=== PATIENT | male | born 1940 | race Caucasian/White ===

== ENCOUNTER → 2018-06-25 09:20 | Outpatient (CLI) | payer MEDICARE, OTHER, SELFPAY ==
--- NOTE | 2018-06-25 | DI.MRI.S_ITS ---
PROCEDURE: MR HEAD/BRAIN WO CON INDICATIONS: VERTIGO/ABNORMAL GAIT TECHNIQUE: Non-contrast axial T1 spin echo, axial T2 fast spin echo, sagittal and axial FLAIR, coronal T2 fast spin echo, axial gradient echo, axial diffusion and ADC through the brain. COMPARISON: None. FINDINGS: Image quality: Excellent. CSF spaces: Ventricles appear symmetric in size and shape. Basal cisterns are patent. No extra-axial fluid collections. Brain: No intracranial bleeds or mass effects. There is cerebral volume loss for age. Prominent perivascular spaces are seen. There are periventricular and deep white matter chronic small vessel ischemic changes. Brainstem appears normal. Diffusion-weighted images show no acute ischemic insults. No chronic ischemic insults. Normal intravascular flow voids are present. Skull and face: Calvarial bone marrow is normal in signal. Orbits are normal. Sinuses: No significant paranasal sinus abnormality is seen. Prominent bilateral mastoid air cell fluid can be seen, right worse than left. IMPRESSION: No findings of acute or subacute infarction can be seen. Note is made of age-appropriate brain parenchymal volume loss and chronic small vessel ischemic changes. Note made of prominent bilateral mastoid air cell fluid. Please correlate with potential clinical findings of mastoiditis. Dictated by: Andrés Cunningham M.D. on 06/25/2018 at 10:15 Approved by: Andrés Cunningham M.D. on 06/25/2018 at 10:16
== END ==
PROVIDERS: Visit Provider Psychiatry & Neurology Neurology
DX: R42 Dizziness and giddiness (principal); R26.9 Unspecified abnormalities of gait and mobility
CPT/HCPCS: 70551

== ENCOUNTER → 2019-08-31 13:23 | Outpatient (CLI) | payer MEDICARE, OTHER, SELFPAY ==
--- NOTE | 2019-08-31 | DI.MRI.S_ITS ---
PROCEDURE: MR LUMBAR SPINE WO CON INDICATIONS: Radiculopathy, lumbosacral region TECHNIQUE: Noncontrast sagittal T1 spin echo and T2 fast echo, sagittal STIR, axial T1 and T2 fast spin echo through the lumbar spine. In cases with scoliosis, additional coronal T2 fast spin echo may be performed. COMPARISON: [facility], CR, XR LUMBAR SPINE 2 OR 3 VIEWS, 08/19/2019, 11:53. FINDINGS: Image quality: Excellent. Alignment and Curvature: There is normal bony alignment. Bone Marrow: Marrow is of normal overall signal. No acute vertebral body compression fractures. Mild chronic L1 compression. Spinal Cord: Conus medullaris terminates at the L2 level. Visualized cord demonstrates normal signal and size. Paraspinous Soft Tissues: No paravertebral masses. T12-L1: No canal stenosis or foraminal stenosis. L1-L2: Mild chronic disc height loss. Small left paracentral disc protrusion, without nerve root impingement. No canal stenosis or significant foraminal stenosis. Mild facet hypertrophy. L2-L3: Moderate to large diffuse disc bulge. Facet and ligament hypertrophy. Moderate canal stenosis. Bilateral foraminal disc bulges without significant foraminal nerve root impingement. L3-L4: Moderate diffuse disc bulge. Prominent facet and ligament hypertrophy. Moderate to severe canal stenosis. Mild bilateral foraminal stenosis. L4-L5: Disc bulge. Prominent bilateral facet and ligament hypertrophy. Severe canal stenosis. Mild bilateral foraminal stenosis. L5-S1: Diffuse disc bulge. Impressive bilateral facet and ligament hypertrophy. Moderate canal stenosis. Mild bilateral foraminal stenosis. IMPRESSION: 1. Multilevel canal stenosis is moderate at L2-L3, moderate to severe at L3-L4, severe at L4-L5, and moderate L5-S1. 2. Multilevel facet arthropathy. Dictated by: Dejan Paez M.D. on 08/31/2019 at 16:05 Approved by: Dejan Paez M.D. on 08/31/2019 at 16:11
== END ==
PROVIDERS: Family Provider Family Medicine; PCP Family Medicine; Visit Provider Orthopaedic Surgery
DX: M48.061 Spinal stenosis, lumbar region without neurogenic claudication (principal); M48.07 Spinal stenosis, lumbosacral region; M47.26 Other spondylosis with radiculopathy, lumbar region; M47.27 Other spondylosis with radiculopathy, lumbosacral region
CPT/HCPCS: 72148

== ENCOUNTER 2020-12-03 08:59 | Inpatient (IN) | payer MEDICARE, OTHER, SELFPAY ==
[2020-12-03] VITALS (31 sets, daily range): BP systolic 92–168; BP diastolic 55–89; PULSE 71–135; RESP 15–32; TEMP 36.6–36.9; O2SAT 86–99; BMI 24.3
--- NOTE | 2020-12-03 09:01 | ED.GENADULT ---
HPI - General Adult General Chief complaint: Abdominal Pain Stated complaint: RUQ Abd pain Time Seen by Provider: 12/03/20 09:00 History of Present Illness HPI narrative: 80-year-old gentleman with a history of prostate cancer, hypertension, depression and anxiety, reflux, history of alcohol use presents with 24 hours of right upper quadrant abdominal pain getting worse over the ensuing 24 hours and worse with deep breathing. Does not seem to be influenced by eating or not eating. He states his last bowel movement was approximately 48 hours ago. He describes no significant nausea or vomiting. No chest pain or palpitations. Denies fevers or cough. No dysuria or frequency. No headaches or neurologic complaints this time. Related Data Home Medications Medication Instructions Recorded Confirmed atorvastatin 20 mg PO BEDTIME 12/03/20 12/03/20 duloxetine 60 mg PO DAILY 12/03/20 12/03/20 latanoprost 1 drp EYE-BOTH BEDTIME 12/03/20 12/03/20 mirtazapine 7.5 mg PO BEDTIME 12/03/20 12/03/20 omeprazole 20 mg PO DAILY 12/03/20 12/03/20 sertraline 100 mg PO BID 12/03/20 12/03/20 trazodone 150 mg PO BEDTIME 12/03/20 12/03/20 Allergies Allergy/AdvReac Type Severity Reaction Status Date / Time No Known Drug Allergies Allergy Verified 12/03/20 09:23 Review of Systems Review of Systems ROS Unobtainable: All systems reviewed & are unremarkable except as noted in HPI and below Patient History Medical History Alcohol use Anxiety Chronic GERD Depression Hypertension Pulmonary embolism Surgical History H/O radical prostatectomy Social History household members: none Smoking Status: Never smoker alcohol intake: current Exam Narrative Exam Narrative: General: Healthy appearing, in mild distress. Well-nourished well-developed. History is somewhat disjointed however he has had 50 mcg of fentanyl HEENT: Moist mucous membranes, normal sclera with reactive pupils, Neck: No JVD, supple Respiratory: Lungs are clear to auscultation, no wheezing no rales no rhonchi. Full and symmetrical air movement Cardiac: Regular rate and rhythm no murmurs no bruits Abdomen: Soft, mild tenderness in the right upper quadrant without rebound or guarding, hypoactive bowel tones, no flank pain Skin: Warm and dry, no rashes Neurologic: Grossly neurologically intact with no obvious asymmetries or abnormalities Extremities: No trauma, well perfused Psych: Cooperative, appropriate insight and affect Initial Vital Signs Initial Vital Signs: Vital Signs Pulse Rate 99 H 12/03/20 09:07 Respiratory Rate 15 12/03/20 09:07 Pulse Oximetry 96 12/03/20 09:07 Course Orders Ordered: ED Orders 12/03/20 11:34 US abdomen limited Stat 12/03/20 12:31 CT abdomen pelvis w con Stat 12/03/20 13:07 CT angio chest PE protocol Stat 12/03/20 13:32 COVID19 Stat 12/03/20 13:38 BNP [NT-proBNP (BNP-Adult 18+)] Stat 12/03/20 13:39 EKG-12 Lead Stat Acetaminophen (Acetaminophen 325 Mg Tablet) 650 mg PO Q6HR PRN PRN Reason: Fever/Mild Pain (1-3) Apixaban (Apixaban 5 Mg Tablet) 10 mg PO BID MIESHA Atorvastatin Calcium (Atorvastatin 20 Mg Tablet) 20 mg PO BEDTIME MIESHA Duloxetine HCl (Duloxetine 30 Mg Capsule) 60 mg PO DAILY MIESHA Hydromorphone HCl (Hydromorphone 0.5 Mg Inj) 0.5 mg IV Q15MIN PRN PRN Reason: Pain, Last Admin: 12/03/20 15:30 Dose: 0.5 mg Documented by: Admin: 12/03/20 13:41 Dose: 0.5 mg Documented by: Admin: 12/03/20 12:02 Dose: 0.5 mg Documented by: Admin: 12/03/20 09:48 Dose: 0.5 mg Documented by: KAROLINE Sodium Chloride (Normal Saline 0.9%) 1,000 mls @ 150 mls/hr IV BOLUS ONE Stop: 12/03/20 19:56 Last Infusion: 12/03/20 16:28 Dose: 0 mls/hr Documented by: Admin: 12/03/20 13:41 Dose: 150 mls/hr Documented by: KAROLINE Ibuprofen (Ibuprofen 600 Mg Tablet) 600 mg PO Q6HR PRN PRN Reason: Fever/Mild Pain (1-3) Last Admin: 12/03/20 17:53 Dose: 600 mg Documented by: SADE Latanoprost (Latanoprost 0.005% Ophth 2.5 Ml) 1 drops EYE-BOTH BEDTIME MIESHA Mirtazapine (Mirtazapine 7.5 Mg Tablet) 7.5 mg PO BEDTIME MIESHA Naloxone HCl (Naloxone 0.4 Mg/Ml Vial) 0.2 mg IV Q2MIN PRN PRN Reason: Opiate Reversal Ondansetron HCl (Ondansetron 4 Mg/2 Ml Inj) 4 mg IV NOW PRN PRN Reason: nausea Last Admin: 12/03/20 09:48 Dose: 4 mg Documented by: KAROLINE Ondansetron HCl (Ondansetron 4 Mg/2 Ml Inj) 4 mg IV Q8HR PRN PRN Reason: Nausea And Vomiting Pantoprazole Sodium (Pantoprazole 20 Mg Tablet) 20 mg PO DAILY MIESHA Sennosides (Sennosides 8.6 Mg Tablet) 17.2 mg PO BEDTIME PRN PRN Reason: Constipation Sertraline HCl (Sertraline 50 Mg Tablet) 100 mg PO BID MIESHA Trazodone HCl (Trazodone 50 Mg Tablet) 150 mg PO BEDTIME MIESHA Discontinued Medications Apixaban (Apixaban 5 Mg Tablet) 5 mg PO NOW ONE Stop: 12/03/20 15:27 Last Admin: 12/03/20 16:23 Dose: 5 mg Documented by: KAROLINE Apixaban (Apixaban 5 Mg Tablet) 5 mg PO NOW ONE Stop: 12/03/20 17:14 Last Admin: 12/03/20 17:53 Dose: 5 mg Documented by: SADE Sodium Chloride (Normal Saline 0.9%) 1,000 mls @ 1,000 mls/hr IV BOLUS ONE Stop: 12/03/20 10:12 Last Infusion: 12/03/20 11:00 Dose: 0 mls/hr Documented by: Admin: 12/03/20 09:28 Dose: 1,000 mls/hr Documented by: KAROLINE Vital Signs Vital signs: Vital Signs - 8 hr 12/03/20 11:59 12/03/20 12:00 12/03/20 12:30 Pulse Rate 86 79 87 Respiratory Rate Blood Pressure 147/73 H 142/72 H Pulse Oximetry 93 94 92 12/03/20 12:58 12/03/20 13:00 12/03/20 13:01 Pulse Rate 86 80 79 Respiratory Rate Blood Pressure 92/55 L Pulse Oximetry 95 96 94 12/03/20 13:06 12/03/20 13:30 12/03/20 13:32 Pulse Rate 80 93 H 89 Respiratory Rate Blood Pressure 129/77 133/78 Pulse Oximetry 94 92 93 12/03/20 14:00 12/03/20 14:01 12/03/20 14:30 Pulse Rate 83 82 80 Respiratory Rate 17 21 20 Blood Pressure 143/70 H 132/72 Pulse Oximetry 91 92 91 12/03/20 15:00 12/03/20 15:16 12/03/20 15:21 Pulse Rate 81 110 H 100 H Respiratory Rate 20 32 H 32 H Blood Pressure 121/67 168/80 H Pulse Oximetry 89 L 88 L 86 L 12/03/20 15:22 12/03/20 15:30 Pulse Rate 83 Respiratory Rate 24 Blood Pressure 152/71 H Pulse Oximetry 96 99 Medical Decision Making Medical Records Medical records reviewed: Yes I reviewed the patient's medical records. Lab Data Lab results reviewed: Yes I reviewed the patient's lab results. Result diagrams: 12/03/20 09:14 12/03/20 09:14 Labs: Lab Results 12/03/20 12/03/20 12/03/20 Range/Units 09:14 09:14 09:14 WBC 8.8 (4.5-11.0) X10^3/uL RBC 4.68 (4.5-5.9) X10^6/uL Hgb 15.5 (13.5-17.5) g/dL Hct 45.0 (41-53) % MCV 96.0 (80-100) fL MCH 33.2 (26-34) PG MCHC 34.6 (30-36) % RDW 13.9 (11.6-14.8) % Plt Count 143 L (150-400) X10^3/uL Neut % (Auto) 79.1 H (50-75) % Lymph % (Auto) 9.4 L (25-40) % Andrew % (Auto) 10.7 (3-14) % Eos % (Auto) 0.5 L (2-4) % Baso % (Auto) 0.3 (0-2) % Neut # (Auto) 6900 (0420-2672) /uL Lymph # (Auto) 800 L (9044-7381) /uL Andrew # (Auto) 900 (0-900) /uL Eos # (Auto) 0 (0-450) /uL Baso # (Auto) 0 (0-100) /uL Sodium 135 L (137-145) mmol/L Potassium 3.9 (3.4-5.1) mmol/L Chloride 100 (98-107) mmol/L Carbon Dioxide 27 (22-32) mmol/L BUN 11 (9-20) mg/dL Creatinine 0.76 (0.66-1.25) mg/dL Estimated GFR > 60.0 (>60) mL/min BUN/Creatinine Ratio 14.5 (6-22) Glucose 121 H (80-110) mg/dL Lactate 0.9 (0.7-2.1) mmol/L Calcium 9.1 (8.4-10.2) mg/dL Magnesium 2.2 (1.6-2.3) mg/dL Total Bilirubin 1.6 H (0.2-1.3) mg/dL AST 25 (17-59) IU/L ALT 16 (<50) IU/L Alkaline Phosphatase 69 (38-126) U/L Troponin I < 0.012 (0.01-0.034) ng/mL NT-Pro-B Natriuret Pep (<450) pg/mL Total Protein 7.7 (6.3-8.2) g/dL Albumin 4.5 (3.5-5.0) g/dL Globulin 3.2 (1.7-4.1) g/dL Albumin/Globulin Ratio 1.4 (1.0-2.8) Lipase 20 L (23-300) U/L SARS-CoV-2 (PCR) (Negative) 12/03/20 12/03/20 Range/Units 13:32 13:38 WBC (4.5-11.0) X10^3/uL RBC (4.5-5.9) X10^6/uL Hgb (13.5-17.5) g/dL Hct (41-53) % MCV (80-100) fL MCH (26-34) PG MCHC (30-36) % RDW (11.6-14.8) % Plt Count (150-400) X10^3/uL Neut % (Auto) (50-75) % Lymph % (Auto) (25-40) % Andrew % (Auto) (3-14) % Eos % (Auto) (2-4) % Baso % (Auto) (0-2) % Neut # (Auto) (6135-7265) /uL Lymph # (Auto) (3623-6013) /uL Andrew # (Auto) (0-900) /uL Eos # (Auto) (0-450) /uL Baso # (Auto) (0-100) /uL Sodium (137-145) mmol/L Potassium (3.4-5.1) mmol/L Chloride (98-107) mmol/L Carbon Dioxide (22-32) mmol/L BUN (9-20) mg/dL Creatinine (0.66-1.25) mg/dL Estimated GFR (>60) mL/min BUN/Creatinine Ratio (6-22) Glucose (80-110) mg/dL Lactate (0.7-2.1) mmol/L Calcium (8.4-10.2) mg/dL Magnesium (1.6-2.3) mg/dL Total Bilirubin (0.2-1.3) mg/dL AST (17-59) IU/L ALT (<50) IU/L Alkaline Phosphatase (38-126) U/L Troponin I (0.01-0.034) ng/mL NT-Pro-B Natriuret Pep 150 (<450) pg/mL Total Protein (6.3-8.2) g/dL Albumin (3.5-5.0) g/dL Globulin (1.7-4.1) g/dL Albumin/Globulin Ratio (1.0-2.8) Lipase (23-300) U/L SARS-CoV-2 (PCR) Negative (Negative) Urine Dip Bedside Urine Glucose Negative Bedside Urine Bilirubin - Negative Bedside Urine Ketone - Negative Urine Specific [place] 1.025 Bedside Urine Occult Blood - Negative Bedside Urine pH 6.0 Bedside Urine Protein + 30 Bedside Urine Urobilinogen +/- 1mg Bedside Urine Nitrite - Negative Bedside Urine Leukocytes - Negative Esterase Point of care testing: Urine Dip Bedside Urine Glucose Negative Bedside Urine Bilirubin - Negative Bedside Urine Ketone - Negative Urine Specific [place] 1.025 Bedside Urine Occult Blood - Negative Bedside Urine pH 6.0 Bedside Urine Protein + 30 Bedside Urine Urobilinogen +/- 1mg Bedside Urine Nitrite - Negative Bedside Urine Leukocytes - Negative Esterase Imaging Data Chest x-ray: Radiologist's Impression: FINDINGS: Surgical changes and devices: None. Lungs and pleura: An incomplete inspiratory result is noted, causing a crowded appearance to the lung markings. No pneumothorax or significant pleural effusions are seen. Mild, streaky opacities are seen at the lung bases. Mediastinum: Mediastinal contours appear normal. Heart size is normal. Bones and chest wall: No suspicious bony lesions. Age-appropriate bony degenerative changes are seen. Overlying soft tissues appear unremarkable. IMPRESSION: Presumed atelectasis is seen at the lung bases. Differential diagnosis includes minimal/early infiltrate, yet this is considered to be less likely. Dictated by: Andrés Cunningham M.D. on 12/03/2020 at 8:27 CT scan - chest: Radiologist's Impression: FINDINGS: Image quality: Excellent. Pulmonary arteries: Pulmonary arteries demonstrate a subsegmental pulmonary embolus in the right lower lobe which is unchanged or slightly improved compared to the prior study earlier today. No other pulmonary emboli are identified. Lungs and pleura: There is bibasilar atelectasis. No pleural effusions or pneumothorax. Central and peripheral airways are patent. Mediastinum: Heart size is normal, without pericardial effusion. No mediastinal or hilar adenopathy. Thoracic aorta is normal in caliber and enhancement. Esophagus is normal in caliber, without hiatal hernia. The coronary arteries have atherosclerotic calcifications. Bones and chest wall: No suspicious bony lesions. Ribs and thoracic spine appear intact throughout. Thyroid gland is normal. No axillary or supraclavicular adenopathy. Abdomen: Visualized upper abdominal solid organs appear normal in the early arterial phase of enhancement. IMPRESSION: 1. Right lower lobe pulmonary embolism, also seen on prior CT of the abdomen and pelvis earlier today. No additional pulmonary emboli identified. 2. Right lower lobe infiltrate consistent with atelectasis or possibly a component of pulmonary infarction. Dictated by: Douglas Jarvis M.D. on 12/03/2020 at 13:40 ECG Data Attestation: I personally reviewed and interpreted this ECG as follows: Interpretation: Sinus rhythm at a rate of 77 Leftward axis, normal intervals Nonspecific ST T wave changes without signs of acute ischemia MDM Narrative Medical decision making narrative: 80-year-old gentleman who presents with right upper quadrant pain an after fairly thorough workup turns out he has a right-sided pulmonary emboli with probable lower lobe right pulmonary infarct causing the right upper abdominal pain. There does not appear to be any acute infection or cardiac etiology. He states that he has had pulmonary embolisms in the past and was anticoagulated for a period of time. Presumably with the repeat pulmonary embolism he is going to need to consider anticoagulation for the rest of his life. Care is reviewed with Dr. Menendez, hospitalist. Patient will be admitted to the hospitalist service. Will begin Eliquis 5 mg b.i.d.. Discharge Plan Departure Patient Disposition: Admitted As Inpatient Clinical Impression: Embolism, pulmonary with infarction Admit Date/Time: 12/03/20 15:30 Admit Provider: Tucker Menendez
--- NOTE | 2020-12-03 09:15 | DI.RAD.S_ITS ---
PROCEDURE: XR CHEST 1V INDICATIONS: upper abd/chest pain TECHNIQUE: One view of the chest was acquired. COMPARISON: None. FINDINGS: Surgical changes and devices: None. Lungs and pleura: An incomplete inspiratory result is noted, causing a crowded appearance to the lung markings. No pneumothorax or significant pleural effusions are seen. Mild, streaky opacities are seen at the lung bases. Mediastinum: Mediastinal contours appear normal. Heart size is normal. Bones and chest wall: No suspicious bony lesions. Age-appropriate bony degenerative changes are seen. Overlying soft tissues appear unremarkable. IMPRESSION: Presumed atelectasis is seen at the lung bases. Differential diagnosis includes minimal/early infiltrate, yet this is considered to be less likely. Dictated by: Andrés Cunningham M.D. on 12/03/2020 at 8:27 Approved by: Andrés Cunningham M.D. on 12/03/2020 at 8:35
[2020-12-03 09:20] LABS: Add Manual Diff / Slide Review NO; Basophils Absolute Auto 0 /uL (0-100); Basophils Percent Auto 0.3 % (0-2); Eosinophils Absolute Auto 0 /uL (0-450); Eosinophils Percent Auto 0.5 % (2-4); Hemoglobin 15.5 g/dL (13.5-17.5); Lymphocytes Absolute Auto 800 /uL (1100-4500); Lymphocytes Percent Auto 9.4 % (25-40); Mean Corpuscular HGB Conc 34.6 % (30-36); Mean Corpuscular Hemoglobin 33.2 PG (26-34); Monocytes Absolute Auto 900 /uL (0-900); Monocytes Percent Auto 10.7 % (3-14); Neutrophils Absolute Auto 6900 /uL (1500-7000); Neutrophils Percent Auto 79.1 % (50-75); Platelet Count 143 X10^3/uL (150-400); Red Blood Cell Count 4.68 X10^6/uL (4.5-5.9); Red Cell Distribution Width 13.9 % (11.6-14.8); White Blood Cell Count 8.8 X10^3/uL (4.5-11.0)
[2020-12-03] MEDS: SODIUM CHLORIDE 0.9% 1,000 ML 1000 ML IV (09:28)
[2020-12-03 09:32] LABS: Alanine Aminotransferase 16 IU/L (<50); Albumin 4.5 g/dL (3.5-5.0); Albumin Globulin Ratio 1.4 (1.0-2.8); Alkaline Phosphatase 69 U/L (38-126); Aspartate Aminotransferase 25 IU/L (17-59); BUN Creatinine Ratio 14.5 (6-22); Bilirubin Total 1.6 mg/dL (0.2-1.3); Blood Urea Nitrogen 11 mg/dL (9-20); Calcium 9.1 mg/dL (8.4-10.2); Carbon Dioxide 27 mmol/L (22-32); Chloride 100 mmol/L (98-107); Estimated Glomerular Filt Rate > 60.0 mL/min (>60); Globulin 3.2 g/dL (1.7-4.1); Glucose 121 mg/dL (80-110); HEMOLYSIS 50 (0-50); Lipase 20 U/L (23-300); Magnesium 2.2 mg/dL (1.6-2.3); Potassium 3.9 mmol/L (3.4-5.1); Sodium 135 mmol/L (137-145); Total Protein 7.7 g/dL (6.3-8.2)
[2020-12-03 09:33] LABS: Lactate (Lactic Acid) 0.9 mmol/L (0.7-2.1)
[2020-12-03 09:43] LABS: Troponin I < 0.012 ng/mL (0.01-0.034)
[2020-12-03] MEDS: ONDANSETRON 4 MG/2 ML INJ IV (09:48)
[2020-12-03] MEDS: HYDROMORPHONE 0.5 MG INJ IV ×4 (09:48→15:30)
--- NOTE | 2020-12-03 11:34 | DI.US.S_ITS ---
PROCEDURE: US ABDOMEN LIMITED INDICATIONS: RUQ PAIN TECHNIQUE: Real-time focused scanning was performed of the abdomen, with image documentation. COMPARISON: None. FINDINGS: Quality of visualization is limited by patient motion and overlying bowel gas. Grossly normal liver appearance, gallbladder appears normal as do the bile ducts. Pancreas could not be seen due to bowel gas. IMPRESSION: Significantly limited study, predominantly due to overlying bowel gas. Depending on the clinical status follow-up by CT scanning may become necessary. Dictated by: Erasmo Gauthier M.D. on 12/03/2020 at 12:45 Approved by: Erasmo Gauthier M.D. on 12/03/2020 at 12:46
--- NOTE | 2020-12-03 12:31 | DI.CT.S_ITS ---
PROCEDURE: CT ABDOMEN PELVIS W CON INDICATIONS: RUQ pain TECHNIQUE: After the administration of intravenous contrast, 5 mm thick sections acquired from the diaphragm to the symphysis. 5 mm coronal and sagittal reformats were acquired. For radiation dose reduction, the following was used: automated exposure control, adjustment of mA and/or kV according to patient size. COMPARISON: None. FINDINGS: Image quality: Excellent. ABDOMEN: Lung bases: Lung bases are abnormal with what appears to be a right lower lobe mild pneumonia posteriorly, medially. In the pulmonary arteries leading to this area are 2 main branches containing a moderate radiodensity filling defect, tubular, consistent with pulmonary embolus. Thus, pulmonary ischemic injury as cause of the alveolar infiltration pattern in that area should be also considered. There is also mild linear atelectasis at the left lung base. Within the abdomen mild fatty infiltration throughout the liver is present. There is a 2.5 cm presumed cyst at the upper right posterior hepatic margin beneath the diaphragm, without inflammation. This cyst measures higher than water in radiodensity, approximately 22 Hounsfield units, and therefore could be further assessed with limited single organ ultrasound to confirm liquid as internal content, likely proteinaceous by appearance. Prior herniorrhaphy noted on the left. No body wall herniation is seen.. Heart size is normal. Solid organs: Liver is normal in size and enhancement. Gallbladder appears normal. Biliary system is non dilated. Pancreas enhances normally. Spleen is normal in size and enhancement. No adrenal nodules. Kidneys demonstrate normal size and enhancement, without hydronephrosis. Peritoneum and bowel: Bowel loops demonstrate normal wall thickness and caliber. Note: No free fluid or air. Nodes and vessels: No retroperitoneal or mesenteric adenopathy by size criteria. Aorta and inferior vena cava are normal in size. Miscellaneous: No ventral hernias. PELVIS: Genitourinary: Bladder wall thickness is normal. Miscellaneous: No inguinal hernias or adenopathy. Bones: No suspicious bony lesions. No vertebral body compression fractures. IMPRESSION: Right lower lobe mild or early pneumonia, no subdiaphragmatic inflammation seen. Additionally, note is made of posterior right lung base pulmonary embolus, acute in appearance, and therefore the area of inflammation at the posterior medial right lower lobe could represent ischemic injury rather than pneumonia/infection at this time. Fatty infiltration throughout the liver, mild in severity. Postsurgical changes of prior left inguinal canal region herniorrhaphy, no body wall herniation found. Note: Findings called to the emergency room physician caring for the patient regarding the pulmonary embolus in the higher than water density 2.5 cm presumed cyst right superior hepatic lobe. Sonographic elective follow-up targeted to that presume cyst is warranted to confirm benign etiology. Follow-up CT for further assessment through the chest given the findings above is anticipated. Dictated by: Erasmo Gauthier M.D. on 12/03/2020 at 13:02 Approved by: Erasmo Gauthier M.D. on 12/03/2020 at 13:12
--- NOTE | 2020-12-03 13:07 | DI.CT.S_ITS ---
PROCEDURE: CT ANGIO CHEST PE PROTOCOL INDICATIONS: PE seen on Abd CT TECHNIQUE: After the administration of intravenous contrast, 2 mm thick sections acquired from the pulmonary apices to the posterior costophrenic angles. 3-dimensional maximum intensity projection (MIP) coronal and sagittal reformats were then acquired through the thorax. For radiation dose reduction, the following was used: automated exposure control, adjustment of mA and/or kV according to patient size. COMPARISON: [facility], CT, CT ABDOMEN PELVIS W CON, 12/03/2020, 12:47. FINDINGS: Image quality: Excellent. Pulmonary arteries: Pulmonary arteries demonstrate a subsegmental pulmonary embolus in the right lower lobe which is unchanged or slightly improved compared to the prior study earlier today. No other pulmonary emboli are identified. Lungs and pleura: There is bibasilar atelectasis. No pleural effusions or pneumothorax. Central and peripheral airways are patent. Mediastinum: Heart size is normal, without pericardial effusion. No mediastinal or hilar adenopathy. Thoracic aorta is normal in caliber and enhancement. Esophagus is normal in caliber, without hiatal hernia. The coronary arteries have atherosclerotic calcifications. Bones and chest wall: No suspicious bony lesions. Ribs and thoracic spine appear intact throughout. Thyroid gland is normal. No axillary or supraclavicular adenopathy. Abdomen: Visualized upper abdominal solid organs appear normal in the early arterial phase of enhancement. IMPRESSION: 1. Right lower lobe pulmonary embolism, also seen on prior CT of the abdomen and pelvis earlier today. No additional pulmonary emboli identified. 2. Right lower lobe infiltrate consistent with atelectasis or possibly a component of pulmonary infarction. Dictated by: Douglas Jarvis M.D. on 12/03/2020 at 13:40 Approved by: Douglas Jarvis M.D. on 12/03/2020 at 13:55
[2020-12-03] MEDS: SODIUM CHLORIDE 0.9% 1,000 ML 150 ML IV (13:41)
[2020-12-03 13:54] LABS: COVID19 -Nasal RAPID Negative (Negative)
[2020-12-03 14:38] LABS: NT-proBNP (BNP-Adult 18+) 150 pg/mL (<450)
--- NOTE | 2020-12-03 15:29 | PC.NURSE ---
Pt stood to void, room air sat dropped into mid to low 80s. placed on 6LNC w/o improvement. Placed on 100% NRB, provider to room, sat improved, weaned to NC 4L. c/o increased pain.
--- NOTE | 2020-12-03 15:34 | P.HP_ITS ---
History of Present Illness History of Present Illness Date Patient Seen: 12/03/20 Chief complaint: RUQ Abd pain Narrative: This is a 80-year-old male with past medical history prostate cancer, depression, anxiety, GERD who presents to the hospital with 24 hours of right upper quadrant abdominal pain and is found to have pulmonary embolism. The patient reports being in his usual state of health until yesterday morning when he began to experience severe right upper quadrant pain. He reports associated dyspnea. He states that his pain was exacerbated by deep breath. He denies any change in his pain with eating or drinking. He denies any nausea or vomiting. He denies significant chest pain. As his pain was not improving he presented to the emergency department where he underwent CTA which showed evidence of right lower lobe pulmonary embolism with associated infiltrate consistent with atelectasis versus pulmonary infarction. The patient was notably down to 86% on room air and was placed on the 12/13 L of supplemental oxygen with improvement in saturations to the mid 90s. He was started on Eliquis in the emergency department and is now admitted to the medicine service for further management. Patient History Medical History Alcohol use Anxiety Chronic GERD Depression Hypertension Pulmonary embolism Surgical History H/O radical prostatectomy Family & Social History Safety & Behavioral: Feels Safe in Current Yes Environment Been Physically Hurt or No Threatened By a Person Tobacco & Substance use: Smoking Status Never smoker Substance Use Type does not use Meds Home Medications and Allergies Home Medications Medication Instructions Recorded Confirmed Type atorvastatin 20 mg PO BEDTIME 12/03/20 12/03/20 History duloxetine 60 mg PO DAILY 12/03/20 12/03/20 History latanoprost 1 drp EYE-BOTH BEDTIME 12/03/20 12/03/20 History mirtazapine 7.5 mg PO BEDTIME 12/03/20 12/03/20 History omeprazole 20 mg PO DAILY 12/03/20 12/03/20 History sertraline 100 mg PO BID 12/03/20 12/03/20 History trazodone 150 mg PO BEDTIME 12/03/20 12/03/20 History Allergies Allergy/AdvReac Type Severity Reaction Status Date / Time No Known Drug Allergies Allergy Verified 02/22/21 09:23 Review of Systems Review of Systems ROS: Yes All systems reviewed with the patient and are negative except as otherwise documented Constitutional Constitutional: Denies body ache(s), Denies chills, Denies fatigue, Denies fever(s), Denies headache(s), Denies night sweats, Denies weakness and Denies weight gain Eyes Eyes: Denies diplopia ENT Ears, Nose, Mouth, and Throat: No abnormal hearing, No dysphagia, No dizziness and No headache(s) Cardiovascular Cardiovascular: Denies chest pain and Reports dyspnea Respiratory Respiratory: Reports dyspnea Gastrointestinal Gastrointestinal: Reports abdominal pain, Denies change in bowel habits and Den ies dysphagia Genitourinary Genitourinary: Denies dysuria Musculoskeletal Musculoskeletal: Denies abnormal gait and Denies arthralgias Neurologic Neurologic: Denies abnormal hearing, Denies abnormal gait, Denies dizziness, Denies headache(s) and Denies weakness Endocrine Endocrine: Denies fatigue Exam Vital Signs (past 8 hours): - 12/03/20 09:07 12/03/20 09:15 12/03/20 09:30 Temperature 97.9 F 98.4 F Pulse Rate 99 H 135 H 82 Respiratory Rate 15 22 Blood Pressure 151/72 H 125/86 Pulse Oximetry 96 96 95 12/03/20 10:00 12/03/20 10:30 12/03/20 11:00 Temperature Pulse Rate 79 73 73 Respiratory Rate Blood Pressure Pulse Oximetry 94 94 94 12/03/20 11:30 12/03/20 11:59 12/03/20 12:00 Temperature Pulse Rate 71 86 79 Respiratory Rate Blood Pressure 147/73 H 142/72 H Pulse Oximetry 93 93 94 12/03/20 12:30 12/03/20 12:58 12/03/20 13:00 Temperature Pulse Rate 87 86 80 Respiratory Rate Blood Pressure 92/55 L Pulse Oximetry 92 95 96 12/03/20 13:01 12/03/20 13:06 12/03/20 13:30 Temperature Pulse Rate 79 80 93 H Respiratory Rate Blood Pressure 129/77 Pulse Oximetry 94 94 92 12/03/20 13:32 12/03/20 14:00 12/03/20 14:01 Temperature Pulse Rate 89 83 82 Respiratory Rate 17 21 Blood Pressure 133/78 143/70 H Pulse Oximetry 93 91 92 12/03/20 14:30 12/03/20 15:00 12/03/20 15:16 Temperature Pulse Rate 80 81 110 H Respiratory Rate 20 20 32 H Blood Pressure 132/72 121/67 Pulse Oximetry 91 89 L 88 L 12/03/20 15:21 12/03/20 15:22 Temperature Pulse Rate 100 H Respiratory Rate 32 H 24 Blood Pressure 168/80 H Pulse Oximetry 86 L 96 Oxygen Delivery Method Nasal Cannula Oxygen Flow Rate [address] scan - chest: Radiologist's impression: IMPRESSION: 1. Right lower lobe pulmonary embolism, also seen on prior CT of the abdomen and pelvis earlier today. No additional pulmonary emboli identified. 2. Right lower lobe infiltrate consistent with atelectasis or possibly a component of pulmonary infarction. Dictated by: Douglas Jarvis M.D. on 12/03/2020 at 13:40 Approved by: Douglas Jarvis M.D. on 12/03/2020 at 13:55 Labs Result Diagrams: 12/03/20 09:14 12/03/20 09:14 Labs: Laboratory Results - last 24 hr 12/03/20 12/03/20 12/03/20 09:14 09:14 09:14 WBC 8.8 RBC 4.68 Hgb 15.5 Hct 45.0 MCV 96.0 MCH 33.2 MCHC 34.6 RDW 13.9 Plt Count 143 L Neut % (Auto) 79.1 H Lymph % (Auto) 9.4 L Crane % (Auto) 10.7 Eos % (Auto) 0.5 L Baso % (Auto) 0.3 Neut # (Auto) 6900 Lymph # (Auto) 800 L Crane # (Auto) 900 Eos # (Auto) 0 Baso # (Auto) 0 Sodium 135 L Potassium 3.9 Chloride 100 Carbon Dioxide 27 BUN 11 Creatinine 0.76 Estimated GFR > 60.0 BUN/Creatinine Ratio 14.5 Glucose 121 H Lactate 0.9 Calcium 9.1 Magnesium 2.2 Total Bilirubin 1.6 H AST 25 ALT 16 Alkaline Phosphatase 69 Troponin I < 0.012 NT-Pro-B Natriuret Pep Total Protein 7.7 Albumin 4.5 Globulin 3.2 Albumin/Globulin Ratio 1.4 Lipase 20 L SARS-CoV-2 (PCR) 12/03/20 12/03/20 13:32 13:38 WBC RBC Hgb Hct MCV MCH MCHC RDW Plt Count Neut % (Auto) Lymph % (Auto) Crane % (Auto) Eos % (Auto) Baso % (Auto) Neut # (Auto) Lymph # (Auto) Crane # (Auto) Eos # (Auto) Baso # (Auto) Sodium Potassium Chloride Carbon Dioxide BUN Creatinine Estimated GFR BUN/Creatinine Ratio Glucose Lactate Calcium Magnesium Total Bilirubin AST ALT Alkaline Phosphatase Troponin I NT-Pro-B Natriuret Pep 150 Total Protein Albumin Globulin Albumin/Globulin Ratio Lipase SARS-CoV-2 (PCR) Negative Assessment & Plan Assessment & Plan narrative: This is a 80-year-old male with past medical history prostate cancer, depression, anxiety, GERD who presents to the hospital with 24 hours of right upper quadrant abdominal pain and is found to have pulmonary embolism. 1. Pulmonary embolism Patient presented with 1 day of right upper quadrant abdominal pain and is found to have right lower lobe PE on CTA. There is also some evidence of atelectasis versus pulmonary infarction. He was started on Eliquis for anticoagulation. Will get echo, bilateral venous ultrasounds, monitor on telemetry. 2. Acute hypoxic respiratory failure He was found to be hypoxic down 86% on room air while in the emergency department. Placed on supplemental oxygen which she can continue with goal saturation of 94% or higher. 3. GERD Continue home PPI 4. Depression Continue home medications 5. Hyperlipidemia Continue home statin Code status: Limited: DNR, Ok to intubate DVT prophylaxis: Eliquis
--- NOTE | 2020-12-03 16:19 | PC.NURSE ---
Medication list reconciled from pharmacy list ([facility]). Pt does not know his meds. Noted multiple anti depressants.
[2020-12-03] MEDS: APIXABAN 5 MG TABLET PO ×2 (16:23→17:53)
--- NOTE | 2020-12-03 17:29 | DI.US.S_ITS ---
PROCEDURE: US PERIPH VENOUS LOW EXTREM BI INDICATIONS: Pulmonary embolism TECHNIQUE: Real-time imaging, as well as color and pulse Doppler interrogation, were performed of the deep veins of both legs from the inguinal ligament to the popliteal fossa. COMPARISON: None. FINDINGS: Right: The common femoral, femoral and popliteal veins are normally compressible, and free of intraluminal thrombus. Color and pulse Doppler demonstrate normal phasic intravascular flow. There is normal augmentation response to distal compression maneuver. Left: The common femoral, femoral and popliteal veins are normally compressible, and free of intraluminal thrombus. Color and pulse Doppler demonstrate normal phasic intravascular flow. There is normal augmentation response to distal compression maneuver. IMPRESSION: No deep venous thrombosis. Dictated by: Kathy Richmond M.D. on 12/03/2020 at 18:01 Approved by: Kathy Richmond M.D. on 12/03/2020 at 18:02
--- NOTE | 2020-12-03 17:32 | DI.ECHO.S_ITS ---
[place] +---------+ Hospital +---------+ : : [address] : : : : [id number] : : : : Phone: [phone] Echocardiogram Report + + :Name: MOSES ORTEGA Study Date: 12/04/2020 Height: 70 in : :[facility] ReadingLocation: Weight: 170 lb : : Gender: Male BSA: 1.9 m2 : :: 1940 Age: 80 yrs BP: 132/75 mmHg: :Reason For Study: PULMONARY EMBOLISM : :Ordering Physician: Rita : :Hospitalist Performed By: Carol Reis : :Referring: HECTOR LOWEO : + + Interpretation Summary The left ventricular cavity is small and might be underfilled. Left ventricular systolic function appears normal without focal wall motion abnormalities. The ejection fraction is estimated to be 60-65%. Diastolic parameters suggest a relaxation abnormality of the left ventricle, consistent with probable normal filling pressures. The right ventricle is normal in size and function. Pulmonary artery pressures cannot be estimated because of the lack of a measurable TR jet velocity but the IVC suggests a CVP of around 3 mmHg. Both atria are normal in size. There is no significant valvular heart disease. The ascending aorta is mildly enlarged. Procedure: A two-dimensional transthoracic echocardiogram with color flow and Doppler was performed. The study quality was technically adequate. There is no prior echocardiogram noted for this patient. The patient was in sinus rhythm with heart rates between 59-71 bpm during the exam. Left Ventricle: The left ventricular cavity is small. There is normal left ventricular wall thickness. Left ventricular systolic function appears normal without focal wall motion abnormalities. The ejection fraction is estimated to be 60-65%. Diastolic parameters suggest a relaxation abnormality of the left ventricle, consistent with probable normal filling pressures. Right Ventricle: The right ventricle is normal in size and function. Atria: Both atria are normal in size. There is no Doppler evidence for an interatrial shunt. Mitral Valve: The mitral valve leaflets are slightly calcified. There is trace mitral regurgitation. Aortic Valve: The aortic valve is trileaflet. The aortic valve opens well. There is no aortic valve stenosis. No aortic regurgitation is present. Tricuspid Valve: The tricuspid valve is normal in structure and function. There is trace tricuspid regurgitation. Pulmonary artery pressures cannot be estimated because of the lack of a measurable TR jet velocity but the IVC suggests a CVP of around 3 mmHg. Pulmonic Valve: The pulmonic valve leaflets are thin and pliable; valve motion is normal. There is no pulmonic valvular regurgitation. There is no significant valvular heart disease. Great Vessels: The aortic root is normal size. The ascending aorta is mildly enlarged. The IVC is of normal diameter and collapses greater than 50% with a sniff. This suggests a low right atrial pressure of 3 mm Hg. Pericardium/ Pleura There is no pericardial effusion. There is no pleural effusion. MMode/2D Measurements & Calculations LVIDd: 3.4 cm LVOT diam: 2.2 cm LVIDs: 2.3 cm Ao root diam: 3.4 cm FS: 33.7 % asc Aorta Diam: 3.5 cm EPSS: 0.67 cm Ao Arch Diam (Prox Trans): 3.1 cm IVSd: 0.53 cm LVPWd: 0.65 cm LV navarro. diameter/BSA (cm/m^2): 1.8 LV sys. diameter/BSA (cm/m^2): 1.2 LA A2 area: 18.9 cm2 RA long axis: 4.8 cm LA A4 area: 15.6 cm2 RA area: 12.8 cm2 LA length (vol): 5.3 cm RA vol: 28.6 ml LA vol: 47.1 ml RA : 14.7 ml/m2 LA vol index: 24.2 ml/m2 IVC diam: 1.6 cm RVD1 (basal): 3.2 cm TAPSE: 2.1 cm Doppler Measurements & Calculations Ao V2 max: 109.2 cm/sec LVOT Max Abebe: 94.5 cm/sec Ao V2 mean: 69.3 cm/sec LV V1 max P.6 mmHg Ao max P.8 mmHg LV V1 VTI: 20.8 cm Ao mean P.3 mmHg CARLIE(I,D): 3.4 cm2 Ao V2 VTI: 23.2 cm CARLIE(V,D): 3.3 cm2 sev ratio: 0.89 CARLIE indexed to BSA (cm^2/m^2): 1.8 MV E max abebe: 69.7 cm/sec PA V2 max: 65.8 cm/sec MV A max abebe: 84.2 cm/sec PA V2 mean: 45.2 cm/sec MV E/A: 0.83 PA mean P.92 mmHg Med Peak E' Abebe: 6.6 cm/sec PA pr(Accel): 15.6 mmHg E/E' med: 10.5 Lat Peak E' Abebe: 8.3 cm/sec E/E' lat: 8.4 E/e' average: 9.5 MV dec time: 0.25 sec SV(LVOT): 80.0 ml Reading Physician:09:10 AM
[2020-12-03] MEDS: IBUPROFEN 600 MG TABLET PO (17:53)
[2020-12-03] MEDS: ACETAMINOPHEN 325 MG TABLET 650 MG PO (19:54)
[2020-12-03] MEDS: ATORVASTATIN 20 MG TABLET PO (21:33)
[2020-12-03] MEDS: MELATONIN 3 MG TABLET 6 MG PO (21:34)
[2020-12-03] MEDS: MIRTAZAPINE 7.5 MG TABLET PO (21:35)
[2020-12-03] MEDS: TRAZODONE 50 MG TABLET 150 MG PO (21:39)
[2020-12-03] MEDS: OXYCODONE IR 5 MG TABLET PO (21:58)
[2020-12-03] MEDS: LATANOPROST 0.005% OPHTH 2.5 ML 1 DROPS EYE-BOTH (22:11)
--- NOTE | 2020-12-03 23:21 | PC.NURSE ---
Dypsnea with exertion, desats into upper 80's on 3-4L NC with sitting up at bedside; at rest, O2 3L=95%; moderate pain 5/10 to RUQ; PO oxycodone at bedtime, reassessed with 3/10 pain; pt denies pain to lower legs; Tele SR; pt using urinal at bedside; field spec ordered due to patient's reported weight loss and increased stress, including loss of appetite; protein drink provided with dinner.
[2020-12-04] VITALS (9 sets, daily range): BP systolic 97–132; BP diastolic 53–75; PULSE 63–98; RESP 16–18; TEMP 36.2–36.9; O2SAT 94–100
--- NOTE | 2020-12-04 01:30 | PC.NURSE ---
patient seen at start of shift and assessed. Oriented to self, birthdate, month, place and situation but did not know date. Speech sounds slurred but understandable. Breath sounds diminished with inspiratory crackles in right LL. On oxygen at 3.5L/min with sat of 97%. Does state he gets SOB with exertion and has pain in right upper abdomen with deep breathing so respirations are shallow. HRR w/telemetry reading of SR. BP checked by [employer] was 7/58 and now rechecked and is 132/75. Denied nausea. BT present and is passing flatus. Denies dysuria, frequency or urgency with urination; no UOP recorded on previous shift but evening RN verbally reported patient had urinated several times since admission. Is able to turn himself in bed. Generalized weakness and reports frequent falls prior to hospitalization so will be provided assistance when getting out of bed; gait not assessed at this time. Refusing SCD's so reminded to ankle wave; verbalizes understanding. At time of assessment stated pain was tolerable at 3/10 and now states he is no longer having pain. Fall risk score is high and bed alarm is activated.
[2020-12-04 06:25] LABS: Add Manual Diff / Slide Review NO; Basophils Absolute Auto 0 /uL (0-100); Basophils Percent Auto 0.3 % (0-2); Eosinophils Absolute Auto 100 /uL (0-450); Eosinophils Percent Auto 2.5 % (2-4); Hemoglobin 13.4 g/dL (13.5-17.5); Lymphocytes Absolute Auto 700 /uL (1100-4500); Lymphocytes Percent Auto 14.3 % (25-40); Mean Corpuscular HGB Conc 34.5 % (30-36); Mean Corpuscular Hemoglobin 33.5 PG (26-34); Mean Corpuscular Volume 97.2 fL (80-100); Monocytes Absolute Auto 500 /uL (0-900); Monocytes Percent Auto 9.9 % (3-14); Neutrophils Absolute Auto 3600 /uL (1500-7000); Platelet Count 113 X10^3/uL (150-400); Red Blood Cell Count 4.01 X10^6/uL (4.5-5.9); Red Cell Distribution Width 14.1 % (11.6-14.8)
[2020-12-04 06:35] LABS: BUN Creatinine Ratio 12.5 (6-22); Blood Urea Nitrogen 12 mg/dL (9-20); Calcium 8.7 mg/dL (8.4-10.2); Carbon Dioxide 30 mmol/L (22-32); Chloride 101 mmol/L (98-107); Estimated Glomerular Filt Rate > 60.0 mL/min (>60); Glucose 106 mg/dL (80-110); HEMOLYSIS < 15 (0-50); Potassium 3.8 mmol/L (3.4-5.1); Sodium 136 mmol/L (137-145)
[2020-12-04] MEDS: PANTOPRAZOLE 20 MG TABLET PO (08:37)
[2020-12-04] MEDS: DULOXETINE 30 MG CAPSULE 60 MG PO (08:37)
[2020-12-04] MEDS: SODIUM CHLORIDE 0.9% FLUSH 10 ML IV (08:37)
[2020-12-04] MEDS: APIXABAN 5 MG TABLET 10 MG PO (08:37)
--- NOTE | 2020-12-04 09:06 | CM.DANOTE ---
Addendum entered by Annemarie Gates R.N. 12/04/20 14:41: Kori, physical therapist indicated that patient is most likely discharging home today, and can benefit with home health P.T, as well as nursing, O.T. Had Dr. Menendez sign face to face, and he did indicate that the plan is for discharge today. Spoke to patient, and gave him agencies of home health, with the exception of [place], since they do not serve [facility]. Patient has no preference, and thinks that home health is a good idea. On calendar, [facility] is listed. Contacted Sheila at [facility] and let her know about referral. Patient will need nursing, P.T, O.T. Faxed her face sheet, face to face, orders, H&P. Let her know that DC summary will be faxed over when completed. Asked Marilyn, criminal legal assistant, to look for DC Summary and fax [facility] when completed. Patient confirmed that his friend, John Mackay, can pick him up, but not until later. He has no family in the area. Original Note: DCP; Case received, EMR reviewed and met with patient. Introduced self and role. Was able to obtain information from patient regarding his baseline activity level prior to hospitalization. DCP assessment completed with information currently available. Patient is a 80 year old male who admitted yesterday afternoon to the care of the hospitalist team. PCP: Dr. Drummond. Payer: confirmed: Medicare/[facility]. Patient came to the hospital via ambulance secondary to having right upper quadrant pain. He was diagnosed with a pulmonary embolism. Patient has history of prostate cancer, and alcohol use. Met with patient in his room. He is pleasant, alert and oriented, sitting up in bed. He resides in [place] alone, and he is independent at his baseline. He also is an avid supervisor diagnostic. Confirmed that he sees Dr. Drummond, medical provider at [facility]. P: DCP to continue to follow. He does not have P.T. orders at this time. Will continue to check in for any needs. Annemarie Gates RN/Chief Inspector
--- NOTE | 2020-12-04 11:09 | PC.NURSE ---
Patient is doing well on room air at 95% upon ambulation O2 saturation was 95%. Patient was very unsteady on his feet, urinated on the floor, was trying not to fall. Dr. Menendez notified and I was given a verbal order for a physical therapy consultation.
--- NOTE | 2020-12-04 13:37 | PT.IIE ---
Current Diagnoses Other pulmonary embolism without acute cor pulmonale (12/03/20) Surgical History (Last Reviewed 12/03/20 @ 17:26 by Tucker Menendez DO) H/O radical prostatectomy Medical History (Last Reviewed 12/03/20 @ 17:26 by Tucker Menendez DO) Alcohol use Anxiety Chronic GERD Depression Hypertension Pulmonary embolism Physical Therapy Inpatient Evaluation/Re-Eval M1 PT/OT-IP Prior Functional Status Start: 12/04/20 14:23 Freq: NEEDED Status: Active Protocol: Document 12/04/20 13:37 AB (Rec: 12/04/20 14:59 AB [id number]) Medical Review Prior Functional Status Medical History Reviewed Yes Communication able to make needs known; [place] Mobility and Gait pt stated that he is independent with all mobilities and ambulation without AD Social History Household Members none Living Arrangements House Number of Floors (Floors) Two Floors Number of Stairs To Enter/Railing? pt stays on main level of the house has 1 step to enter and can hold on to the wall on the side Home Environment Standard Height Toilet,Tub/ Shower Home Equipment Four Wheel Walker,Shower Seat with Backrest,Hand Held Shower ,Grab Bars In Shower Additional Social History Comment pt stated that he had used a 4WW before and has one but has not been using it at home M2 PT-IP Current Condition Start: 12/04/20 14:23 Freq: NEEDED Status: Active Protocol: Document 12/04/20 13:37 AB (Rec: 12/04/20 14:59 AB [id number]) Physical Therapy Current Condition Current Condition Evaluation Date 12/04/20 Treatment Diagnosis PE; difficulty in walking Onset Date 12/04/20 M3 PT-IP Subjective Start: 12/04/20 14:23 Freq: NEEDED Status: Active Protocol: Document 12/04/20 13:37 AB (Rec: 12/04/20 14:59 AB [id number]) Subjective Physical Therapy Visit Type Type Initial Evaluation Visit Start Time 13:37 Visit Stop Time 14:10 Total Visit Minutes 33 Notes received PT eval order. EMR reviewed and pt found to have PE. no PT/INR on labs. checked with nurse and stated that pt was started on Eliquis just yesterday afternoon. asked nurse if pt is within therapeutic range for PT to see pt since no PT/INR and pt was on anticoagulation in <48 hours. Nurse stated to ask the doctor. Asked the doctor regarding the above and stated that pt should be ok and is on Eliquis and that he is planning to d/c pt today. informed the doctor that PT usually holds off until pt has been on anticoagulant for at least 48 hours. Doctor stated again that pt should be within therapeutic range and should be ok for PT to see. Number of GROCERY CLERK SELLING Visits 0 Physical Therapy Visit Comments Patient Comments pt is agreeable to do PT Therapy Pain Assessment Pain Present Pain Present Denied Pain M4 PT-IP Mobility and Gait Start: 12/04/20 14:23 Freq: NEEDED Status: Active Protocol: Document 12/04/20 13:37 AB (Rec: 12/04/20 14:59 AB [id number]) PT-Bed Mobility Assessment Supine to Sit Supine to Sit Standby Assistance,Bedrails Sit to Supine Sit to Supine Standby Assistance Scooting Scooting to Edge of Bed Standby Assistance PT-Transfer Assessment Sit to and From Stand Sit to and from Stand Standby Assistance,1 Person Assistance,Use of Upper Extremities Equipment Transfer Assistive Device Gait Belt,Front Wheeled Walker Orthotic/Prosthetic Devices or Brace: No Comments Mobility Comments O2 sat room air at rest: 94%. pt completed supine to sit SBA. pt required increase time to complete task and used rail to assist. pt was able to sit on EOB SBA. O2 sat inconsistent: 88-92% educated pt on deep breathing. pt completed sit to stand SBA and ambulated in room using FWW 30 ft initially CGA but able to complete SBA. educated pt on safety and energy conservation. pt rested. O2 sat: 94%. pt stated that he has a 4WW at home. assessed ambulation using 4WW and completed SBA ~ 30 ft. assessed pt ambulation without AD and required min A and cues. presents with unsteady antalgic gait with decrease step length. completed up/down 1 step CGA and cues for safety. pt holds on to side wall for support/ pt ambulated back to his room without AD CGA to min A. comleted sit to supine SBA. positioned in bed. call light and table placed within reach . informed nurse, MD and case management director regarding pt's mobility and homehealth services recommendations. Gait Assessment Gait Gait Assistance Required: Standby Assistance,Contact Guard Assist Distance (Feet) 30 Able to Maintain Weight Bearing Status Yes During Gait Assistive Devices Assistive Device None,Gait Belt,Front Wheeled Walker,4 Wheeled Walker Orthotic/Prosthetic Devices or Brace: No Gait Deviations General Gait Pattern Antalgic,Narrow Based Gait Factors Limiting Gait Function Factors Limiting Gait Function Decreased Activity Tolerance, Decreased Strength,Poor Balance,Poor Safety Awareness, Respiratory Distress Stair Climbing Assessment Evaluation Level of Assist On Stairs Contact Guard Assistance,1 Person Assistance Technique/Endurance Stair Climbing Direction Ascend and Descend Stair Climbing Technique Step to Step Number of Steps Climbed 1 Query Text: Stair Climbing Set # Repetitions (reps) 2 Comments Stair Climbing Comments educated on stair climbing and activating quads prior to lifting opposite to get up stairs. PT-Balance Assessment Sitting Balance and Reactions Static Sitting Balance Ability Good Dynamic Sitting Balance Ability Good Standing Balance and Reactions Static Standing Balance Ability Fair Dynamic Standing Balance Ability Fair Device Used without AD M5 PT-IP Objective Assessments Start: 12/04/20 14:23 Freq: NEEDED Status: Active Protocol: Document 12/04/20 13:37 AB (Rec: 12/04/20 14:59 AB [id number]) Orientation Orientation/Cognition Level of Alertness Alert Orientation Name,Place,Situation Language Function Ability Hard of Hearing Safety Awareness Decreased Safety Awareness Gross Range of Motion Lower Extremity ROM Assessment Within Functional Limits Strength Lower Extremity Strength Hip 4-/5 Knee 4-/5 Sensation Assessment Sensation Gross Sensation WNL Muscle Tone Muscle Tone WNL Yes M6 PT-IP Treatment Start: 12/04/20 14:23 Freq: NEEDED Status: Active Protocol: Document 12/04/20 13:37 AB (Rec: 12/04/20 14:59 AB [id number]) Physical Therapy Treatment Education Education Provided Safety M7 PT-IP Assessment and Plan Start: 12/04/20 14:23 Freq: NEEDED Status: Active Protocol: Document 12/04/20 13:37 AB (Rec: 12/04/20 14:59 AB [id number]) PT Summary Assessment and Plan Potential Rehabilitation Potential Fair Status of Condition at Evaluation Evolving Summary Impairments Pain,ROM,Strength,Balance, Coordination,Sensation,Tone, Cognition,Bed Mobility, Transfers,Gait,Activity Tolerance Assessment Summary pt requiring SBA to CGA with mobility. informed pt regarding assistance needed at home and stated that he can arrange for somebody to assist him. stated that he has a ethylene oxide panelboard operator that can check on him. informed pt regarding safety and use of 4WW at this time and pt agreed. pt will also need homehealth PT. Goals Bed Mobility Goal Independent Transfer Goal Independent,Four Wheeled Walker Gait Goal Independent,Four Wheel Walker Gait Distance 100 Other Goals improve ambulation without AD 200 ft SBA up/down 1 step without AD SBA Days to Meet Goals 5 Frequency of Treatment Frequency Of Treatment Once a Day Treatment Plan Physical Therapy Treatment Plan Bed Mobility Training,Transfer Training,Gait Training, Therapeutic Exercise,Balance Retraining,Discharge Planning, Neuromuscular Re-ed, Coordination Retraining Recommendations To Nursing Amount of Assist Needed 1 Person Assist Discharge Recommendations PT Discharge Recommendations Home with Assistance,Home Health Transportation Needs at Discharge Private Vehicle
--- NOTE | 2020-12-04 14:37 | P.DS_ITS ---
History of Present Illness History of Present Illness Date Patient Seen: 12/04/20 Chief complaint: RUQ Abd pain Narrative: This is a 80-year-old male with past medical history prostate cancer in remission, depression, anxiety, GERD who presented to the hospital with 24 hours of right upper quadrant abdominal pain and was found to have pulmonary embolism. The patient reports being in his usual state of health until yesterday morning when he began to experience severe right upper quadrant pain. He reports associated dyspnea. He states that his pain was exacerbated by deep breath. He denies any change in his pain with eating or drinking. He denies any nausea or vomiting. He denies significant chest pain. As his pain was not improving he presented to the emergency department where he underwent CTA which showed evidence of right lower lobe pulmonary embolism with associated i nfiltrate consistent with atelectasis versus pulmonary infarction. The patient was notably down to 86% on room air and was placed on the 12/13 L of supplemental oxygen with improvement in saturations to the mid 90s. He was started on Eliquis in the emergency department and is now admitted to the [facility] service for further management. Discharge Providers Provider Date of admission: 12/03/20 15:30 Discharge Date: 12/04/20 Primary care physician: Gem Drummond DO Consults: 12/03/20 17:25 Consult to Dietitian, Adult Routine Comment: Reason For Exam: unintended weight loss; stress Consult to Pastoral Services Routine Comment: would like to see general helper 12/04/20 11:08 Consult to Physical Therapy Evaluate & Treat Comment: Physician Instructions: Evaluate and Treat 12/04/20 14:34 Consult to Home Health Routine Comment: Reason For Exam: Home Health RN, P.T, O.T. Discharge provider: Tucker Lowe DO Summary Hospital Course Discharge Diagnosis: Pulmonary embolism Acute hypoxic respiratory failure GERD Depression Hyperlipidemia Hospital Course: The patient presented to the hospital with 1 day of right upper quadrant abdominal pain. This was initially thought to be of intra-abdominal Etiology, however CTA of his chest abdomen and pelvis revealed a right lower lobe pulmonary embolism. He was started on Eliquis and admitted to the hospit al. He was initially found to be hypoxic down to 86% on room air, requiring supplemental oxygen to maintain oxygen saturations in the mid to high 90s. He underwent echocardiography which showed preserved EF at 60-65%, normal RV size and function without evidence of RV strain. He had no significant valvular heart disease. He had bilateral lower extremity duplex ultrasounds which were negative for DVT. The patient does not have a recent history of immobilization or malignancy in the us with this pulmonary embolism is presumed to be unprovoked. He does have a remote history of provoked DVT in the setting of immobilization for which he was previously treated with a course of anticoagulation. Given that he has a new unprovoked PE he should remain on anticoagulation for 3-6 months with consideration to continue lifelong anticoagulation. He was discharged on Eliquis for anticoagulation. He was also assessed by respiratory therapist and is found to not be requiring oxygen on discharge. Additionally, physical therapy saw the patient and recommended outpatient physical therapy on discharge. Status at Discharge Cognitive/behavioral status at discharge: oriented Functional status at discharge: uses cane/walker Overall status at discharge: patient is progressing back to baseline Time Spent with Patient Time spent: Greater than 30 minutes Exam Vital Signs (past 8 hours): - 12/04/20 08:20 12/04/20 09:00 12/04/20 12:10 Temperature 97.5 F L 97.5 F L Pulse Rate 64 98 H Respiratory Rate 16 18 Blood Pressure 105/62 132/62 Pulse Oximetry 98 98 94 12/04/20 13:00 Temperature Pulse Rate Respiratory Rate Blood Pressure Pulse Oximetry 95 Oxygen Delivery Method Room Air Oxygen Flow Rate 1 Narrative Exam Narrative: Const General: cooperative Orientation: alert, awake and oriented x3 HENME Head: normal to inspection, normocephalic and atraumatic Eyes General: appearance normal, both eyes and all related structures Pupils: PERRL EOM: EOM intact bilaterally Neck Neck: normal visual inspection and full ROM Chest Chest: normal inspection of the chest and normal palpation of entire chest wall Resp Effort & Inspection: normal respiratory effort Auscultation: no rales, no rhonchi and no wheezes Cardio Palpation: normal PMI Rate: regular rate Rhythm: regular rhythm Heart Sounds: S1 normal and S2 normal GI Inspection: normal to inspection Palpation: soft, No guarding and No tender Auscultation: normal bowel sounds Neuro General: patient alert, patient awake, patient oriented x3 and CN's II-XI intact bilaterally Motor: muscle tone normal throughout Sensory Exam: no sensory deficits noted Extrem General: normal to inspection Psych Mood: congruent mood Affect: normal affect Attitude: cooperative Thought Content: normal Objective Imaging CT scan - chest: Radiologist's impression: [facility] [place] [id number] Scan ReportSigned Patient: Mark Ortega EMR#: [id number]: 2Acct:[id number]/Sex: 80 / MDate of Service: 12/03/20Loc: EDAccession Number: [id number] Procedure: CT angio chest PE protocol Ordering Provider: Alyson Pepper MD PROCEDURE: CT ANGIO CHEST PE PROTOCOL INDICATIONS: PE seen on Abd CT TECHNIQUE: After the administration of intravenous contrast, 2 mm thick sections acquired from the pulmonary apices to the posterior costophrenic angles. 3-dimensional maximum intensity projection (MIP) coronal and sagittal reformats were then acquired through the thorax. For radiation dose reduction, the following was used: automated exposure control, adjustment of mA and/or kV according to patient size. COMPARISON: [facility], CT, CT ABDOMEN PELVIS W CON, 12/03/2020, 12:47. FINDINGS: Image quality: Excellent. Pulmonary arteries: Pulmonary arteries demonstrate a subsegmental pulmonary embolus in the right lower lobe which is unchanged or slightly improved compared to the prior study earlier today. No other pulmonary emboli are identified. Lungs and pleura: There is bibasilar atelectasis. No pleural effusions or pneumothorax. Central and peripheral airways are patent. Mediastinum: Heart size is normal, without pericardial effusion. No mediastinal or hilar adenopathy. Thoracic aorta is normal in caliber and enhancement. Esophagus is normal in caliber, without hiatal hernia. The coronary arteries have atherosclerotic calcifications. Bones and chest wall: No suspicious bony lesions. Ribs and thoracic spine appear intact throughout. Thyroid gland is normal. No axillary or supraclavicular adenopathy. Abdomen: Visualized upper abdominal solid organs appear normal in the early arterial phase of enhancement. IMPRESSION: 1. Right lower lobe pulmonary embolism, also seen on prior CT of the abdomen and pelvis earlier today. No additional pulmonary emboli identified. 2. Right lower lobe infiltrate consistent with atelectasis or possibly a component of pulmonary infarction. Dictated by: Douglas Jarvis M.D. on 12/03/2020 at 13:40 Approved by: Douglas Jarvis M.D. on 12/03/2020 at 13:55 Echo: Radiologist's impression: [facility] [place], [place] [id number] ReportSigned Patient: Mark Ortega EMR#: [id number]: 1940cct:[id number]/Sex: 80 / MDate of Service: 12/03/20Loc: [id number] Number: [id number] Procedure: EC echo doppler complete Ordering Provider: Tucker Lowe D.O. [facility] +---------+ Hospital +---------+ : : [id number] : : : : [place] : : : : [id number] : : : : Phone: [phone]+ Echocardiogram Report + + :Name: MARK ORTEGA Study Date: 12/04/2020 Height: 70 in : :[facility] ReadingLocation: Weight: 170 lb : : Gender: Male BSA: 1.9 m2 : :: 1940 Age: 80 yrs BP: 132/75 mmHg: :Reason For Study: PULMONARY EMBOLISM : :Ordering Physician: Rita : :Hospitalist Performed By: Carol Reis : :Referring: HECTOR LOWE D.O : + + Interpretation Summary The left ventricular cavity is small and might be underfilled. Left ventricular systolic function appears normal without focal wall motion abnormalities. The ejection fraction is estimated to be 60-65%. Diastolic parameters suggest a relaxation abnormality of the left ventricle, consistent with probable normal filling pressures. The right ventricle is normal in size and function. Pulmonary artery pressures cannot be estimated because of the lack of a measurable TR jet velocity but the IVC suggests a CVP of around 3 mmHg. Both atria are normal in size. There is no significant valvular heart disease. The ascending aorta is mildly enlarged. Procedure: A two-dimensional transthoracic echocardiogram with color flow and Doppler was performed. The study quality was technically adequate. There is no prior echocardiogram noted for this patient. The patient was in sinus rhythm with heart rates between 59-71 bpm during the exam. Left Ventricle: The left ventricular cavity is small. There is normal left ventricular wall thickness. Left ventricular systolic function appears normal without focal wall motion abnormalities. The ejection fraction is estimated to be 60-65%. Diastolic parameters suggest a relaxation abnormality of the left ventricle, consistent with probable normal filling pressures. Right Ventricle: The right ventricle is normal in size and function. Atria: Both atria are normal in size. There is no Doppler evidence for an interatrial shunt. Mitral Valve: The mitral valve leaflets are slightly calcified. There is trace mitral regurgitation. Aortic Valve: The aortic valve is trileaflet. The aortic valve opens well. There is no aortic valve stenosis. No aortic regurgitation is present. Tricuspid Valve: The tricuspid valve is normal in structure and function. There is trace tricuspid regurgitation. Pulmonary artery pressures cannot be estimated because of the lack of a measurable TR jet velocity but the IVC suggests a CVP of around 3 mmHg. Pulmonic Valve: The pulmonic valve leaflets are thin and pliable; valve motion is normal. There is no pulmonic valvular regurgitation. There is no significant valvular heart disease. Great Vessels: The aortic root is normal size. The ascending aorta is mildly enlarged. The IVC is of normal diameter and collapses greater than 50% with a sniff. This suggests a low right atrial pressure of 3 mm Hg. Pericardium/ Pleura There is no pericardial effusion. There is no pleural effusion. MMode/2D Measurements & Calculations LVIDd: 3.4 cm LVOT diam: 2.2 cm LVIDs: 2.3 cm Ao root diam: 3.4 cm FS: 33.7 % asc Aorta Diam: 3.5 cm EPSS: 0.67 cm Ao Arch Diam (Prox Trans): 3.1 cm IVSd: 0.53 cm LVPWd: 0.65 cm LV navarro. diameter/BSA (cm/m^2): 1.8 LV sys. diameter/BSA (cm/m^2): 1.2 LA A2 area: 18.9 cm2 RA long axis: 4.8 cm LA A4 area: 15.6 cm2 RA area: 12.8 cm2 LA length (vol): 5.3 cm RA vol: 28.6 ml LA vol: 47.1 ml RA : 14.7 ml/m2 LA vol index: 24.2 ml/m2 IVC diam: 1.6 cm RVD1 (basal): 3.2 cm TAPSE: 2.1 cm Doppler Measurements & Calculations Ao V2 max: 109.2 cm/sec LVOT Max [place]: 94.5 cm/sec Ao V2 mean: 69.3 cm/sec LV V1 max P.6 mmHg Ao max P.8 mmHg LV V1 VTI: 20.8 cm Ao mean P.3 mmHg CARLIE(I,D): 3.4 cm2 Ao V2 VTI: 23.2 cm CARLIE(V,D): 3.3 cm2 sev ratio: 0.89 CARLIE indexed to BSA (cm^2/m^2): 1.8 MV E max idalia: 69.7 cm/sec PA V2 max: 65.8 cm/sec MV A max idalia: 84.2 cm/sec PA V2 mean: 45.2 cm/sec MV E/A: 0.83 PA mean P.92 mmHg Med Peak E' Idalia: 6.6 cm/sec PA pr(Accel): 15.6 mmHg E/E' med: 10.5 Lat Peak E' Idalia: 8.3 cm/sec E/E' lat: 8.4 E/e' average: 9.5 MV dec time: 0.25 sec SV(LVOT): 80.0 ml Reading Physician:09:10 AM Venous US: Radiologist's impression: [address] [id number] ReportSigned Patient: Mark Ortega EMR#: [id number]: 2Acct:[id number]/Sex: 80 / MDate of Service: 12/03/20Loc: [id number] Number: [id number] Procedure: US periph venous low extrem bi Ordering Provider: Tucker Lowe D.O. PROCEDURE: US PERIPH VENOUS LOW EXTREM BI INDICATIONS: Pulmonary embolism TECHNIQUE: Real-time imaging, as well as color and pulse Doppler interrogation, were performed of the deep veins of both legs from the inguinal ligament to the popliteal fossa. COMPARISON: None. FINDINGS: Right: The common femoral, femoral and popliteal veins are normally compressible, and free of intraluminal thrombus. Color and pulse Doppler demonstrate normal phasic intravascular flow. There is normal augmentation response to distal compression maneuver. Left: The common femoral, femoral and popliteal veins are normally compressible, and free of intraluminal thrombus. Color and pulse Doppler demonstrate normal phasic intravascular flow. There is normal augmentation response to distal compression maneuver. IMPRESSION: No deep venous thrombosis. Dictated by: Kathy Richmond M.D. on 12/03/2020 at 18:01 Approved by: Kathy Richmond M.D. on 12/03/2020 at 18:02 Labs Result Diagrams: 12/04/20 06:05 12/04/20 06:05 Labs: Laboratory Results - last 24 hr 12/03/20 12/04/20 12/04/20 13:38 06:05 06:05 WBC 5.0 RBC 4.01 L Hgb 13.4 L Hct 39.0 L MCV 97.2 MCH 33.5 MCHC 34.5 RDW 14.1 Plt Count 113 L Neut % (Auto) 73.0 Lymph % (Auto) 14.3 L [place] % (Auto) 9.9 Eos % (Auto) 2.5 Baso % (Auto) 0.3 Neut # (Auto) 3600 Lymph # (Auto) 700 L [place] # (Auto) 500 Eos # (Auto) 100 Baso # (Auto) 0 Sodium 136 L Potassium 3.8 Chloride 101 Carbon Dioxide 30 BUN 12 Creatinine 0.96 Estimated GFR > 60.0 BUN/Creatinine Ratio 12.5 Glucose 106 Calcium 8.7 NT-Pro-B Natriuret Pep 150 PFSH Medical History Alcohol use Anxiety Chronic GERD Depression Hypertension Pulmonary embolism Surgical History H/O radical prostatectomy Social History household members: none Smoking Status: Never smoker alcohol intake: current Discharge Assessment & Plan Assessment and Plan Assessment: Assessment & Plan narrative: This is a 80-year-old male with past medical history prostate cancer, depression, anxiety, GERD who presents to the hospital with 24 hours of right upper quadrant abdominal pain and is found to have pulmonary embolism. 1. Pulmonary embolism Patient presented with 1 day of right upper quadrant abdominal pain and is found to have right lower lobe PE on CTA. No evidence of RV strain on echo. No DVT on ultrasound of lower extremities. He will continue on Eliquis at discharge. This is considered an unprovoked PE, his 2nd (his 1st pulmonary embolism was provoked in the setting of immobilization), and he should continue on anticoagulation for at least 3-6 months with consideration for lifelong anticoagulation. Of note, the patient had a unexpected speedy recovery. 2. Acute hypoxic respiratory failure Found to be hypoxic at 86% on room air in the setting of pulmonary embolism. He was weaned off oxygen prior to discharge 3. GERD Continue home PPI 4. Depression Continue home medications 5. Hyperlipidemia Continue home statin Plan of Treatment: Patient had an unexpected speedy recovery. Discharge Plan Discharge Plan Patient Disposition: Home Discharge orders & Medications Prescriptions: New Eliquis 5 mg Tablet See Rx Instructions .ROUTE .COMPLEX Qty: 60 RF: 0 Continued latanoprost 0.005 % drops 1 drp EYE-BOTH BEDTIME RF: 0 atorvastatin 20 mg tablet 20 mg PO BEDTIME RF: 0 sertraline 100 mg tablet 100 mg PO BID RF: 0 trazodone 150 mg tablet 150 mg PO BEDTIME RF: 0 omeprazole 20 mg Capsule,Delayed Release(Dr/Ec) 20 mg PO DAILY RF: 0 mirtazapine 7.5 mg Tablet 7.5 mg PO BEDTIME RF: 0 duloxetine 60 mg capsule,delayed release(DR/EC) 60 mg PO DAILY RF: 0 Follow up/Referrals: Gem Drummond DO [Primary Care Provider] - Visit Report/Discharge Packet Instructions: Pulmonary Embolism, Apixaban Discharge Data Primary Care Provider: Gme Drummond Quality VTE Deep Vein Thrombosis/Pulmonary Embolism Present on Admission: Yes
--- NOTE | 2020-12-04 15:02 | CM.DPNOTE ---
Faxed DC Summary to [facility] per [facility] and received fax confirmation. Marilyn Gutierrez CM Asst.
--- NOTE | 2020-12-04 17:25 | PC.NURSE ---
A&Ox3, 96%RA. denies sob. denies cough. discharge instructions given to patient. IV removed, tele removed. all belongings returned to patient.
== END 2020-12-04 18:55 | disposition home or self-care (01) | DRG 175 ==
LOC: ED 15:27 → AC 15:31
PROVIDERS: Nurse Practitioner Adult Health; Admitting Provider Hospitalist; Emergency Provider Emergency Medicine; Family Provider Family Medicine; PCP Family Medicine; Referring Provider Emergency Medicine; Visit Provider Hospitalist
DX: I26.99 Other pulmonary embolism without acute cor pulmonale (principal); J96.01 Acute respiratory failure with hypoxia; K21.9 Gastro-esophageal reflux disease without esophagitis; F32.9 Major depressive disorder, single episode, unspecified; I10 Essential (primary) hypertension; Z85.46 Personal history of malignant neoplasm of prostate; Z20.822 Contact with and (suspected) exposure to COVID-19
CPT/HCPCS: 36415; 71045; 71275; 74177; 76705; 80048; 80053; 81003; 83605; 83690; 83735; 83880; 84484; 85025; 87635; 93005; 93306; 93970; 94618; 94760; 96361; 96374; 96375; 97162; 99285; C9803; J1170; J2405; Q9967

== ENCOUNTER → 2022-03-23 14:27 | Outpatient (CLI) | payer MEDICARE, OTHER, SELFPAY ==
[2020-12-03 17:06] VITALS: BMI 24.3
--- NOTE | 2022-03-23 14:29 | DI.MRI.S_ITS ---
PROCEDURE: MR LUMBAR SPINE WO CON INDICATIONS: LUMBAR STENOSIS WITH NEUROGENIC CLAUDICATION TECHNIQUE: Noncontrast sagittal T1 spin echo and T2 fast echo, sagittal STIR, and T2 fast spin echo through the lumbar spine. Oblique axial T2 weighted images were obtained through the lower lumbar spine. In cases with scoliosis, additional coronal T2 fast spin echo may be performed. COMPARISON: [facility], CR, XR LUMBAR SPINE WITH FLEXION EXTENSION 5 VIEWS, 02/07/2022, 11:36. [facility], MR, MR LUMBAR SPINE WO CON, 08/31/2019, 13:43. [facility], CT, CT ABDOMEN PELVIS W CON, 12/03/2020, 12:47. FINDINGS: Image quality: Excellent. Alignment and Curvature: There is normal bony alignment. Bone Marrow: Marrow is of normal overall signal. Scattered foci are seen, which are hyperintense on T1-weighted and T2-weighted imaging, which are most consistent with benign vertebral body hemangiomas. The most prominent of these is seen within the T12 level. No acute vertebral body compression fractures. Spinal Cord: Conus medullaris terminates at the L1-L2 level. Visualized cord demonstrates normal signal and size. Paraspinous Soft Tissues: No paravertebral masses. T12-L1: No significant abnormality is seen. L1-L2: Moderate loss of disc height is seen. Loss of disc signal is seen. Reactive marrow endplate changes are seen, which demonstrate mixed T1 weighted and T2-weighted signal, and are attributed to a combination of edema and fatty metaplasia (Modic type I and Modic type II changes). Mild to moderate disc bulge is seen, with a central/left disc protrusion, as on series 4, image 13. Mild facet joint hypertrophy is seen. Minimal bilateral neural foraminal narrowing can be seen. Mild central canal narrowing is seen. No significant change from the prior. L2-L3: The disc height is well-preserved. Loss of disc signal is seen at this level. Moderate disc bulge is seen, which is eccentric to the left. Moderate facet joint hypertrophy is seen. Mild to moderate bilateral neural foraminal narrowing is seen. Mild to moderate central canal narrowing is seen, as on series 4, image 19. When comparison is made with the prior images, these findings are similar. L3-L4: The disc height is well-preserved. Loss of disc signal is seen at this level. At least moderate disc bulge is seen, with a central disc protrusion. At least moderate facet hypertrophy is seen. Associated hypertrophy of the ligamentum flavum can be seen. There is moderate right-sided and minimal left-sided neural foraminal narrowing. At least moderate central canal narrowing is seen at this level, as on series 4, image 25. When comparison is made with the prior images, these findings are similar. L4-L5: The disc height is well-preserved. Loss of disc signal is seen at this level. There is a superimposed central disc protrusion. Moderate to prominent facet hypertrophy is seen. Associated hypertrophy of the ligamentum flavum can be seen. Moderate bilateral neural foraminal narrowing is seen. Severe central canal narrowing is seen, as on series 5, image 5. When comparison is made with the prior images, these findings are similar. L5-S1: The disc height and disc signal are relatively well preserved. Moderate generalized disc bulge is seen. There is a superimposed central disc protrusion. At least moderate facet hypertrophy is seen, right worse than left. There is [id number] right-sided and at least moderate left-sided neural foraminal narrowing. Moderate central canal narrowing is seen. When comparison is made with the prior images, these findings are similar. IMPRESSION: Multiple levels of lumbar spine degenerative change are seen, which are worst at the L4-L5 level. The degenerative changes are similar to the 2019 images. Dictated by: Andrés Cunningham M.D. on 03/24/2022 at 16:20 Approved by: Andrés Cunningham M.D. on 03/24/2022 at 16:25
== END ==
PROVIDERS: Family Provider Family Medicine; PCP Family Medicine; Referring Provider Physician Assistant Surgical; Visit Provider Physician Assistant Surgical
DX: M48.062 Spinal stenosis, lumbar region with neurogenic claudication (principal); M47.816 Spondylosis without myelopathy or radiculopathy, lumbar region; M47.817 Spondylosis without myelopathy or radiculopathy, lumbosacral region
CPT/HCPCS: 72148